=== PATIENT | female | born 1965 | race Caucasian/White ===

== ENCOUNTER 2017-03-16 01:31 | Emergency (ER) | payer OTHER ==
[~2017-03-16] VITALS: Ht 157.5 cm; Wt 82.0 kg
[2017-03-16 01:33] VITALS: TEMP 36.6; Ht 157.5 cm; Wt 82.0 kg
--- NOTE | 2017-03-16 02:28 | EMERGENCY ROOM VISIT NOTE ---
History Report prepared by Nav: Alex Dumont Under the Supervision of: Dr. Wandy Morrison D.O. First contact with patient: 01:49 Chief Complaint: MENTAL HEALTH EVALUATION Stated Complaint: MENTAL HEALTH,PAIN IN LEGS AND FEET History of Present Illness The patient is a 51 year old female who presents to the Emergency Room with family concerns over the patient not taking care of herself over the past couple of weeks. The patient's son notes that she has been increasingly tired and "mentally distraught." He claims that she is not taking care of herself and not taking her daily medications. She has a history of depression and bipolar disorder, but she is not taking her anti-depression medications. The patient is also complaining of worsening pain in her left leg currently. She went to [facility] this evening via [facility] for the pain in her left leg. [facility]ell blood work to rule out deep vein thrombosis in the leg. After the blood work was drawn, the patient and her son were not happy with the care and they left the hospital under their own discretion. She has been to the hospital several different times in the past month. She was in the [facility] last month due to masses on her ovaries, and a history of cancer. The patient also reported to the [facility] ER several times this past week for persistent vaginal bleeding. Per the son the patient has been homeless for the past couple of months and has been staying at motels, and friend's homes. She claims that her boyfriend is going to get an apartment tomorrow as he is now moving out of his parents home after his father . The patient admits to worsening depression recently, but denies suicidal ideation. She has had counseling in the past, but states she quit because it was not helping. The son is requesting an inpatient stay at a psychiatric facility. Source of History: patient Onset: Past couple of weeks Position: other (Mental Health) Quality: other (Not caring for self) Timing: worsening ((declining)) Note: Patient complains of left leg pain denies suicidal ideation. Review of Systems See HPI for pertinent positives & negatives. A total of 10 systems reviewed and were otherwise negative. Past Medical & Surgical Medical Problems: (1) Anxiety (2) Bipolar disorder (3) Depression (4) Migraine Anxiety Bipolar disorder Depression Migraine Family History Cancer Diabetes mellitus Heart disease Hypertension Social History Smoking Status: Former Smoker Marital Status: in relationship Housing Status: other (homeless) Occupation Status: unemployed Current/Historical Medications Unable to Obtain Active Prescriptions or Reported Meds Physical Exam Vital Signs Date Time Temp Pulse Resp B/P (MAP) Pulse Ox O2 Delivery O2 Flow Rate FiO2 03/16/17 04:00 64 18 154/76 98 03/16/17 01:33 36.6 59 16 157/87 96 Room Air Physical Exam HEENT: Head - normocephalic and atraumatic Pupils are equal, round, and reactive to light. Extraocular eye muscles are intact, and sclera are anicteric. Nose - moist nasal mucosa without discharge. Mouth - moist buccal mucosa. Oropharynx is nonerythematous and there is no tonsillar exudate or edema noted. Neck: Supple; no JVD, nuchal rigidity, cervical lymphadenopathy. Heart: Regular rate and rhythm. There is a normal S1 and S2 with no murmurs, clicks, or gallops appreciated. Lungs: Lung sounds are distant bilaterally, with no wheezes, rales, or rhonchi. Abdomen: Soft, completely nontender, nondistended, with good bowel sounds. There are no palpable pulsatile masses or hepatosplenomegaly. There is no guarding, rigidity, or rebound noted. Extremities: There is left calf pain to palpation. No evidence of cyanosis, clubbing, or edema. There are easily palpable peripheral pulses. Skin: warm and dry with good turgor and no rashes. Psych: Patient admits to depression, but no suicidal thoughts or plans. The patient denies any homicidal thoughts. She had been treated for depression before but stopped taking her medication. Her last inpatient psychiatric stay was approximately 2-3 years ago. Medical Decision & Procedures ER Provider Diagnostic Interpretation: Radiology results as stated below per my review and the radiologist's interpretation: US VENOUS LEFT LOWER EXTREMITY: No evidence of deep venous thrombosis. Radiologist: Zack Medrano M.D. Laboratory Results 03/16/17 02:30 03/16/17 02:30 Test 03/16/17 01:45 03/16/17 02:30 Urine Color YELLOW Urine Appearance CLEAR (CLEAR) Urine pH 5.5 (4.5-7.5) Urine Specific [place] 1.020 (1.000-1.030) Urine Protein NEG (NEG) Urine Glucose (UA) NEG (NEG) Urine Ketones NEG (NEG) Urine Occult Blood NEG (NEG) Urine Nitrite NEG (NEG) Urine Bilirubin NEG (NEG) Urine Urobilinogen NEG (NEG) Urine Leukocyte Esterase NEG (NEG) Urine Opiates Screen NEG (NEG) Urine Methadone, Qualitative NEG (NEG) Urine Barbiturates NEG (NEG) Urine Phencyclidine (PCP) Level NEG (NEG) Ur Amphetamine/Methamphetamine NEG (NEG) MDMA (Ecstasy) Screen NEG (NEG) Urine Benzodiazepines Screen NEG (NEG) Urine Cocaine Metabolite NEG (NEG) Urine Marijuana (THC) NEG (NEG) Red Blood Count 4.42 M/uL (4.2-5.4) Mean Corpuscular Volume 78.3 fL (80-100) Mean Corpuscular Hemoglobin 25.8 pg (25-34) Mean Corpuscular Hemoglobin Concent 32.9 g/dl (32-36) RDW Standard Deviation 44.1 fL (36.4-46.3) RDW Coefficient of Variation 15.3 % (11.5-14.5) Mean Platelet Volume 9.7 fL (7.4-10.4) Anion Gap 5.0 mmol/L (3-11) Est Creatinine Clear Calc Drug Dose 135.1 ml/min Estimated GFR () 131.7 Estimated GFR (Non- 113.7 BUN/Creatinine Ratio 17.2 (10-20) Calcium Level 8.3 mg/dl (8.5-10.1) Total Bilirubin 0.3 mg/dl (0.2-1) Direct Bilirubin < 0.1 mg/dl (0-0.2) Aspartate Amino Transf (AST/SGOT) 16 U/L (15-37) Alanine Aminotransferase (ALT/SGPT) 31 U/L (12-78) Alkaline Phosphatase 94 U/L (45-117) Total Protein 6.9 gm/dl (6.4-8.2) Albumin 3.4 gm/dl (3.4-5.0) Thyroid Stimulating Hormone (TSH) 1.170 uIu/ml (0.300-4.500) Salicylates Level < 1.7 mg/dl (2.8-20) Acetaminophen Level < 2 ug/ml (10-30) Ethyl Alcohol mg/dL < 3.0 mg/dl (0-3) Laboratory results per my review. Medications Administered Medications (Trade) Dose Ordered Sig/Vero Route Start Time Stop Time Status Last Admin Dose Admin Ketorolac Tromethamine (Toradol Inj) 60 mg NOW STAT IM 03/16/17 03:44 03/16/17 03:46 DC 03/16/17 03:44 60 MG Potassium Chloride (Klor-Con M10) 20 meq NOW STAT PO 03/16/17 03:44 03/16/17 03:46 DC 03/16/17 03:44 20 MEQ Procedure Medications Ordered: Potassium Chloride, Toradol ED Course 0157: I reviewed the patients' medical document from [facility]. 0200: Past medical records reviewed. The patient was evaluated in room A6. A complete history and physical exam was performed. Labs were drawn as above to supplement the labs that were drawn at [facility]. 0210: I reviewed the patients laboratory studies from [facility] at this time. 0330: I reevaluated the patient at this time. The son left the patient and returned home. She does not want admission to any hospitals around the area. She wants to be sent back home to [place] where she can be close to her boyfriend. 0338: The patient will be discharged into the waiting room at this time. 0343: I spoke with the patient one final time. She reiterated that she is not suicidal or homicidal. She is still wishing to got to [facility]. She will be discharged to the waiting room and will call her son when he wakes up. She is willing to take something for her leg now. 0344: Ordered Toradol 60 mg IM, Potassium Chloride 20 PO. Medical Decision The patient is a 51 year old female who presents to the Emergency Department for left leg pain and a mental health evaluation. Differential Diagnosis includes; Calf strain, DVT, mood disorder, medication non -compliance, hypokalemia. Laboratory Studies from [facility] reveal; D-dimer of 0.31, normal renal function, glucose of 116, potassium of 3.6, she is anemic with a hemoglobin of 10.7, no leukocytosis. TSH of 1.4. Alcohol Tylenol and Aspiring negative, Tox screen is negative, Urinalysis is negative. The patient's son brings the patient this emergency department for evaluation of her left leg pain and for her depression. The patient has a long-standing history of depression and has been evaluated by psychiatry. She has been prescribed medications but has stopped taking them. She denies any suicidal or homicidal ideation. The patient's son requested that the patient be evaluated for inpatient psychiatric care. I reviewed the strict criteria used to admit someone for an inpatient psychiatric stay. It did not seem that the patient met those criteria. However, I agreed to have the patient evaluated by psychiatry. I explained to the patient and her son that our [facility] was full and that if she did meet criteria for inpatient psychiatric care that she would need to be transferred to another inpatient unit. The closest one being the [facility]. The patient was adamant not to be admitted at the [facility] and stated that she would like to be admitted at [facility] The patient had an ultrasound of her left leg to rule out DVT. This was negative. She was given a dose of Toradol for her pain. I reviewed the criteria for inpatient psychiatric care. The patient is not homicidal or suicidal. She is able to care for herself. She has been staying with friends and plans to move into a new place with her boyfriend in [place]. I spent some time talking to the patient about the importance of taking her medications for depression and her supplement for hypokalemia. She was given a oral dose of potassium chloride prior to discharge. Medication Reconcilliation Current Medication List: was personally reviewed by me Blood Pressure Screening Patient's blood pressure: Elevated blood pressure (Anxiety) Blood pressure disposition: Elevated BP felt to be situational Impression Primary Impression: Pain of left calf Additional Impressions: Depression Hypokalemia Scribe Attestation The scribe's documentation has been prepared under my direction and personally reviewed by me in its entirety. I confirm that the note above accurately reflects all work, treatment, procedures, and medical decision making performed by me. Departure Information Dispostion Home / Self-Care (Pt will be discharged to waiting room) Prescriptions Unable to Obtain Active Prescriptions or Reported Meds Referrals No Doctor, Assigned (PCP) Forms HOME CARE DOCUMENTATION FORM, IMPORTANT VISIT INFORMATION Patient Instructions My [facility] Additional Instructions Rest your left leg Use tylenol or motrin for pain Take foods high in potassium. Take your potassium supplement Take you medications as directed for your depression. If you have any thoughts of suicide or worsening depression, call [facility] Problem Qualifiers
[2017-03-16 02:41] LABS: HEMATOCRIT 34.6 % (37-47); MEAN CELL VOLUME 78.3 fL (80-100); MEAN CORPUSCULAR HEMOGLOBIN 25.8 pg (25-34); MEAN CORPUSCULAR HGB CONC 32.9 g/dl (32-36); MEAN PLATELET VOLUME 9.7 fL (7.4-10.4); PLATELET COUNT 260 K/uL (130-400); RED BLOOD COUNT 4.42 M/uL (4.2-5.4); WHITE BLOOD COUNT 5.97 K/uL (4.8-10.8)
[2017-03-16 03:06] LABS: URINE APPEARANCE CLEAR (CLEAR); URINE BILIRUBIN NEG (NEG); URINE COLOR YELLOW; URINE NITRITE NEG (NEG); URINE PH 5.5 (4.5-7.5); UROBILINOGEN NEG (NEG)
[2017-03-16 03:10] LABS: BENZODIAZEPINE, URINE NEG (NEG); COCAINE,URINE NEG (NEG); PHENCYCLIDINE, URINE NEG (NEG)
[2017-03-16 03:11] LABS: ALT/SGPT 31 U/L (12-78); AST/SGOT 16 U/L (15-37); BLOOD UREA NITROGEN 9 mg/dl (7-18); BUN/CREATININE RATIO 17.2 (10-20); CALCIUM 8.3 mg/dl (8.5-10.1); CARBON DIOXIDE 29 mmol/L (21-32); CHLORIDE 104 mmol/L (98-107); GLUCOSE 114 mg/dl (70-99); POTASSIUM 3.2 mmol/L (3.5-5.1); SODIUM 138 mmol/L (136-145)
[2017-03-16 03:12] LABS: MANUAL MICROSCOPIC REQUIRED? NO; REVIEW REQ? NO
[2017-03-16 03:22] LABS: ALKALINE PHOSPHATASE 94 U/L (45-117)
[2017-03-16 03:31] LABS: ACETAMINOPHEN < 2 ug/ml (10-30)
[2017-03-16] MEDS ORDERED: KETOROLAC TROMETHAMINE 60 MG/2 ML VIAL IM STA (03:44)
[2017-03-16] MEDS ORDERED: POTASSIUM CHLORIDE 10 MEQ TABCR PO STA (03:44)
[2017-03-16 04:00] VITALS: BP 154/76; PULSE 64; O2SAT 98
--- NOTE | 2017-03-16 07:10 | DIAGNOSTIC IMAGING REPORT ---
ULTRASOUND LEFT LOWER EXTREMITY VENOUS CLINICAL HISTORY: Left leg pain. COMPARISON STUDY: No priors. TECHNIQUE: Real-time, grayscale, and color Doppler sonography of the deep veins of the left lower extremity was performed from the inguinal crease to the calf. Compression and augmentation were utilized. FINDINGS: There is no sonographic evidence of deep venous thrombosis identified in the left lower extremity. The common femoral, superficial femoral, and popliteal veins are patent and normally compressible. The greater saphenous vein and the profunda femoris vein at the junction with the common femoral vein are clear. The visualized calf veins are patent. IMPRESSION: There is no sonographic evidence of deep venous thrombosis identified in the left lower extremity. Electronically signed by: Bhavin Tirado M.D. 03/16/2017 7:09 AM Dictated Date/Time: 03/16/2017 7:08 AM
== END 2017-03-16 04:07 | disposition home or self-care (01) ==
LOC: C.EDB 01:33 → C.EDA 04:07
DX: F31.9 Bipolar disorder, unspecified (principal); M79.662 Pain in left lower leg; F41.9 Anxiety disorder, unspecified; E87.6 Hypokalemia; Z87.891 Personal history of nicotine dependence; Z80.9 Family history of malignant neoplasm, unspecified; Z83.3 Family history of diabetes mellitus; Z82.49 Family history of ischemic heart disease and other diseases of the circulatory system

== ENCOUNTER 2017-03-16 08:19 | Emergency (ER) | payer OTHER ==
[~2017-03-16] VITALS: Ht 157.5 cm; Wt 81.9 kg
[2017-03-16 08:25] VITALS: TEMP 36.3; Ht 157.5 cm; Wt 81.9 kg
--- NOTE | 2017-03-16 09:08 | EMERGENCY ROOM VISIT NOTE ---
History Report prepared by Nav: Giovanni Davies Under the Supervision of: Dr. Sujit Deshpande M.D. First contact with patient: 08:31 Chief Complaint: OTHER COMPLAINT Stated Complaint: LEG, STRESS History of Present Illness The patient is a 51 year old female who presents to the Emergency Room with complaints of constant left lower extremity pain beginning a few months ago. The patient's records states that she was in the ED around 6 hours ago and was given a shot of Toradol. The patient states that the shot of Toradol improved her symptoms, but she is still having them. She reports that she has been having vaginal bleeding for the past two months and was told that she needs to have a hysterectomy. The patient notes that her bleeding stopped three days ago , and she has not seen a orthotic/prosthetic clinician yet. She states that she has been bloated , experiencing diarrhea, and sexual intercourse is painful. The patient reports that she has been seen in both [place] and [place] for similar symptoms. Her records show that she was evaluated by case management in her previous visit. She notes that she has not seen a psychiatrist yet, and she denies being suicidal. The patient admits to having minor depression and not taking her medication. She states that she would like to speak with case management about further psychiatric evaluation. The patient admits to lying about her chief complaint in order to been seen by other providers. Source of History: patient Onset: few months ago Position: leg (left) Timing: constant Modifying Factors (Relieving): other (Toradol) Associated Symptoms: + diarrhea Note: Associated symptoms: vaginal bleeding, bloating, pain with sexual intercourse Denies: suicidal ideation Review of Systems See HPI for pertinent positives & negatives. A total of 10 systems reviewed and were otherwise negative. Past Medical & Surgical Medical Problems: (1) Anxiety (2) Bipolar disorder (3) Depression (4) Migraine Family History Cancer Diabetes mellitus Heart disease Hypertension Social History Smoking Status: Never Smoker Marital Status: in relationship Housing Status: other Occupation Status: unemployed Current/Historical Medications Unable to Obtain Active Prescriptions or Reported Meds Allergies Coded Allergies: Ibuprofen (Unverified Allergy, Severe, gagging feeling,sickness, 03/16/17) Morphine (Verified Allergy, Unknown, states "my heart stops", 03/16/17) Physical Exam Vital Signs Date Time Temp Pulse Resp B/P (MAP) Pulse Ox O2 Delivery O2 Flow Rate FiO2 03/16/17 12:03 77 18 144/79 96 03/16/17 08:25 36.3 59 18 175/106 99 Room Air Physical Exam GENERAL: Patient is well appearing and in no acute distress. HEENT: No acute trauma, normocephalic atraumatic, mucous membranes moist, no nasal congestion, no scleral icterus. NECK: No stridor, no adenopathy, no meningismus, trachea is midline. LUNGS: No dyspnea. Clear to auscultation and equal bilaterally. No wheeze, no rhonchi. HEART: Regular rate and rhythm. No murmurs, rubs, gallops appreciated. ABDOMEN: Soft, nontender, bowel sounds positive, no masses appreciated, no peritonitis. BACK: No midline tenderness, no CVA tenderness EXTREMITIES: Normal motion all extremities, no cyanosis, no edema. NEUROLOGIC: Alert and oriented, no acute motor or sensory deficits, no focal weakness, cranial nerves grossly intact. SKIN: No rash, no jaundice, no diaphoresis. PSYCH: Admits to minor depression, denies suicidal and homicidal ideations, denies hallucinations. Medical Decision & Procedures ED Course 0833: The patient was evaluated in room B02. A complete history and physical exam was performed. 0857: I asked [facility] to evaluate the patient for further treatment. 1142: The patient was evaluated by mental health. She does not meet criteria for admission. She states that she is feeling better. The patient reports that she is homeless and does not know what to do. The patient was discharged. Medical Decision 51 yr old with several varying requests who was just seen a few hours earlier. Vast differential entertained given multiple complaints. After further discussion it appears that she has been here since discharge and she admits she checked back in again to see if someone would do a hysterectomy on her today. I will note she admits she has no current vaginal bleeding/discharge nor pain currently. She has been seen numerous times over last few months/years in [place] and [facility] for same request, along with leg pains. Admits she has been diagnosed with neuropathy in past. She has already had labs and US in last few hours here which were normal. Her exam is benign. Patient requesting mental health evaluation. She is adamant she is not suicidal, not homicidal, no hallucinations. She makes clear she is not a risk of harming herself or others on several discussions. [facility] evaluated patient and agrees there is no indication for inpatient admission. She was discharged with instructions to follow up with [facility] [employer] [facility]/Neuro/PCP. Medication Reconcilliation Current Medication List: was personally reviewed by me Impression Primary Impression: Depression Additional Impressions: Homelessness Chronic leg pain Scribe Attestation The scribe's documentation has been prepared under my direction and personally reviewed by me in its entirety. I confirm that the note above accurately reflects all work, treatment, procedures, and medical decision making performed by me. Departure Information Dispostion Home / Self-Care Prescriptions Unable to Obtain Active Prescriptions or Reported Meds Referrals No Doctor, Assigned (PCP) Forms HOME CARE DOCUMENTATION FORM, IMPORTANT VISIT INFORMATION, WORK / SCHOOL INSTRUCTIONS Patient Instructions My [facility] Additional Instructions You have been examined and treated today on an emergency basis only. This is not a substitute for, or an effort to provide, complete comprehensive medical care. It is impossible to recognize and treat all injuries or illnesses in a single emergency department visit. It is therefore important that you follow up closely with your Primary Physician. Call as soon as possible for an appointment so you can review all labs, imaging and other testing that you had. Return to Emergency Department, call 911 or seek immediate medical attention if you feel your symptoms are worsening. You were evaluated by Mental Health and there is no indication of need for inpatient psychiatric treatment at this time. If you develop suicidal thoughts , thoughts of harm to self, or other concerns return immediately for further evaluation. Problem Qualifiers
[2017-03-16 12:03] VITALS: BP 144/79; PULSE 77; O2SAT 96
== END 2017-03-16 12:04 | disposition home or self-care (01) ==
LOC: C.EDB 08:20 → C.EDA 12:04
DX: F31.9 Bipolar disorder, unspecified (principal); Z59.0 Homelessness; G89.29 Other chronic pain; M79.605 Pain in left leg; F41.9 Anxiety disorder, unspecified; Z80.9 Family history of malignant neoplasm, unspecified; Z83.3 Family history of diabetes mellitus; Z82.49 Family history of ischemic heart disease and other diseases of the circulatory system

== ENCOUNTER 2017-05-30 12:00 | Emergency (ER) | payer OTHER ==
[~2017-05-30] VITALS: Ht 157.5 cm; Wt 77.4 kg
[2017-05-30 12:15] VITALS: TEMP 36.4; Ht 157.5 cm; Wt 77.4 kg
--- NOTE | 2017-05-30 12:34 | EMERGENCY ROOM VISIT NOTE ---
History First contact with patient: 12:27 Chief Complaint: FOOT PAIN Stated Complaint: FOOT PAIN,TOE PAIN History of Present Illness The patient is a 51 year old female who presents to the Emergency Room via private vehicle with complaints of "foot pain, toe pain". The patient states that a few days ago she fell and landed on her left knee. She has had pain since then and was evaluated at [facility] had x-rays done and was diagnosed with a sprain. She was given a splint but does not wear it. She now notes swelling and pain in the left anterior knee. She declines x-rays of this region. She then notes that this morning while getting out of bed around 6:30 AM she struck her toe/left lateral foot against the bed. She notes pain at the left fifth toe. There is a small abrasion of which she notes her tetanus is up- to-date. She rates the overall pain in the foot as a 8/10. She states that she was given pain medication by [facility] but notes the medication was too expensive and sent it back. Review of Systems A complete 6-point Review of Systems was discussed with the patient, with pertinent positives and negatives listed in the History of Present Illness. All remaining Review of Systems questions can be considered negative unless otherwise specified. Past Medical/Surgical History Medical Problems: (1) Anxiety (2) Bipolar disorder (3) Depression (4) Migraine Family History Cancer Diabetes mellitus Heart disease Hypertension Social History Smoking Status: Never Smoker Marital Status: in relationship Housing Status: other Occupation Status: unemployed Current/Historical Medications Scheduled Aspirin (Aspirin Ec), 81 MG PO DAILY Potassium Ext Rel (Klor-Con), Unknown Dose PO DAILY Miscellaneous Medications Ferrous Sulfate (Iron), Unknown Dose Physical Exam Vital Signs Date Time Temp Pulse Resp B/P (MAP) Pulse Ox O2 Delivery O2 Flow Rate FiO2 05/30/17 12:15 36.4 77 18 131/74 94 Room Air Physical Exam VITAL SIGNS - Vital signs and nursing notes were reviewed. Stable. GENERAL -51-year-old female appearing her stated age who is in no acute distress. Communicates well with provider and answers questions appropriately. SKIN - there is a small abrasion to the anterior aspect of the left distal fifth toe. There is also dirt on the bottoms of both feet. HEAD - NC/AT. EXTREMITIES - No clubbing or peripheral cyanosis. No pretibial edema present. There is tenderness overlying the patient's left anterior knee. No calf tenderness. There is also tenderness to palpation overlying the patient's left fifth metacarpal and fifth digit on the left foot. No ankle or anterior foot tenderness. She is neurovascularly intact in this region. Medical Decision & Procedures ER Provider Diagnostic Interpretation: L FOOT MIN 3 VIEWS ROUTINE CLINICAL HISTORY: Left foot pain s/p kicking. COMPARISON: None. FINDINGS: Tarsometatarsal joints are intact. There is no acute fracture within the left foot. Joint spaces are preserved. IMPRESSION: No acute fracture or dislocation within the left foot. Electronically signed by: Jorge Gómez M.D. 05/30/2017 1:08 PM Dictated Date/Time: 05/30/2017 12:58 PM Medical Decision Patient was seen and evaluated as above. She presents to us today status post left toe/fifth metatarsal injury this morning. X-ray was obtained. Negative. She was offered an x-ray of the knee as the pain she's had there but declines. She states that she was seen at [facility] had x-rays and was diagnosed with sprain a few days ago. Swelling is in the anterior portion of the knee, and there is no posterior knee or calf tenderness. I do not suspect DVT. I suspect she likely and the foot is experiencing a contusion. The small abrasion was cleansed by myself. She was given a postop shoe, and made nonweightbearing with crutches. She is to follow with her family doctor, or if pain persists with the orthopedic surgeon. She was educated upon management, educated upon worrisome symptoms in which to return, had questions prior to discharge, and was discharged home in good condition. In the evaluation and treatment of this patient, the following differential diagnoses were considered: Lisfranc Fracture, Talus Fracture, Tarsal Fracture, Foot Sprain. Impression Primary Impression: Foot pain Additional Impression: Contusion of foot Departure Information Dispostion Home / Self-Care Condition GOOD Referrals No Doctor, Assigned (PCP) Nehemias Lai M.D. Patient Instructions [facility] Additional Instructions You have been treated in the Emergency Department for a left foot injury. For pain control, you can use the following [id number] medicines (if >12 yo): - Regular strength (325mg/tab) Tylenol (acetaminophen) 2 tabs every 4-6 hours as needed. Do not exceed 12 tablets in a 24 hour period. Avoid taking more than 3 grams (3000 mg) of Tylenol per day. This includes any other sources of acetaminophen you may take on a regular basis. If this is a recent injury (<24 hrs), ice can be applied to the area of pain for the first 3 days to help decrease pain and inflammation. You have been provided the number for an Orthopaedic Surgeon. You should call this number as soon as possible to establish a follow-up visit from today's Emergency Department visit. Keep the foot/ankle brace/splint in place until cleared by Orthopedics. Use the crutches you have been provided to keep ALL weight off of the ankle until weight bearing is tolerable. Return to the Emergency Department if your current symptoms worsen despite treatment course outlined above, or if you develop any of the following symptoms : intractable pain despite aforementioned treatment course or new onset of numbness or tingling of the foot. Problem Qualifiers
[2017-05-30] MEDS ORDERED: ASPI81TA28 PO (12:38)
[2017-05-30] MEDS ORDERED: FERR1TAB23 (12:38)
[2017-05-30] MEDS ORDERED: POTA20TA16 PO (12:38)
--- NOTE | 2017-05-30 13:10 | DIAGNOSTIC IMAGING REPORT ---
L FOOT MIN 3 VIEWS ROUTINE CLINICAL HISTORY: Left foot pain s/p kicking. COMPARISON: None. FINDINGS: Tarsometatarsal joints are intact. There is no acute fracture within the left foot. Joint spaces are preserved. IMPRESSION: No acute fracture or dislocation within the left foot. Electronically signed by: Jorge Gómez M.D. 05/30/2017 1:08 PM Dictated Date/Time: 05/30/2017 12:58 PM
[2017-05-30 13:31] VITALS: BP 145/78; PULSE 88; O2SAT 98
== END 2017-05-30 13:31 | disposition home or self-care (01) ==
LOC: C.EDB 12:01 → C.EDD 13:31
DX: S90.32XA Contusion of left foot, initial encounter (principal); S90.416A Abrasion, unspecified lesser toe(s), initial encounter; W22.03XA Walked into furniture, initial encounter; F41.9 Anxiety disorder, unspecified; F31.9 Bipolar disorder, unspecified; Z80.9 Family history of malignant neoplasm, unspecified; Z83.3 Family history of diabetes mellitus; Z82.49 Family history of ischemic heart disease and other diseases of the circulatory system; Z79.82 Long term (current) use of aspirin; Z79.899 Other long term (current) drug therapy